=== PATIENT | male | born 1965 | race Caucasian/White ===

== ENCOUNTER 2018-11-24 09:58 | Emergency (ER) | payer OTHER ==
[2018-11-24] MEDS ORDERED: CHLORHEXIDINE GLUCONATE 4 % 15 ML UD TOP ONE (10:05)
[2018-11-24] MEDS ORDERED: TETANUS,DIPHTHERIA,PERTUSSIS 1 EA SYG IM ONE (10:23)
[2018-11-24] MEDS ORDERED: CEFUROXIME AXETIL TAB 250 MG TAB PO ONE (10:35)
--- NOTE | 2018-11-24 11:21 | RAD ---
EXAM DESCRIPTION: Tibia/Fibula,Left CLINICAL HISTORY: 53 years Male open wound, bone visible COMPARISON: None TECHNIQUE: AP, lateral and oblique views of the tibia/fibula are obtained. FINDINGS: OSSEOUS: There is no evidence of acute fracture or osteolytic/osteoblastic lesions. The joint spaces are preserved. There is no evidence of degenerative osteophytosis or sclerosis. There is no evidence of marginal erosive changes to suggest an inflammatory arthritis. SOFT TISSUE: There is no significant soft tissue swelling or mass. Focus of air density is superimposed on the junction of the middle and distal thirds of the tibia and may correlate with the reported open wound. There is no evidence of significant soft tissue calcifications. No radiopaque foreign bodies. No evidence of an ankle joint effusion. IMPRESSION: No acute osseous abnormalities. If there is clinical concern for osteomyelitis, recommend triple phase bone scan or MRI. Remainder of findings as described above. Electronically signed by: Mari Moon MD 11/24/2018 11:20 AM CDT
[2018-11-24] MEDS ORDERED: LIDOCAINE 1% W/ EPINEPHRINE 20 ML VIAL INJ ONE (11:26)
[2018-11-24] MEDS ORDERED: KETOROLAC TROMETHAMINE INJ 30 MG/ML VIAL IM ONE (11:27)
--- NOTE | 2018-11-24 11:30 | ED.PDOC ---
History of Present Illness - General Chief Complaint: Lower Extremity Injury Stated Complaint: left lower leg wound Time Seen by Provider: 11/24/18 10:22 Source: patient Exam Limitations: no limitations - History of Present Illness Initial Comments: Patient presents with a laceration to the left lower leg. He was working near his boat and struck his leg against a mechanical apparatus. He has mild pain in the anterior left lower leg. Refuses pain medications up arrival. No other injuries nor complaints. Timing/Duration: 1/2 hour Severity: mild Improving Factors: nothing Worsening Factors: nothing Associated Symptoms: denies symptoms Allergies/Adverse Reactions: Allergies NO KNOWN ALLERGY Allergy (Verified 11/24/18 11:08) Home Medications: Ambulatory Orders Cefuroxime Axetil 250 mg PO Q12H #13 tablet 11/24/18 Levothyroxine Sodium [Synthroid] 112 mcg PO DAILY 11/24/18 Pravastatin Sodium 40 mg PO DAILY 11/24/18 Review of Systems - Review of Systems Constitutional: States: no symptoms reported EENTM: States: no symptoms reported Respiratory: States: no symptoms reported Cardiology: States: no symptoms reported Gastrointestinal/Abdominal: States: no symptoms reported Genitourinary: States: no symptoms reported Musculoskeletal: States: no symptoms reported Skin: States: see HPI Neurological: States: no symptoms reported Endocrine: States: no symptoms reported Hematologic/Lymphatic: States: no symptoms reported Past Medical History (General) - Patient Medical History Hx Thyroid Disease: Yes Hx Cancer: Yes - skin Surgical History: other - Social History Hx Tobacco Use: Yes Family Medical History - Family History Mother Family History: Unknown Physical Exam - Physical Exam General Appearance: Alert Respiratory: lungs clear, normal breath sounds Cardiovascular/Chest: normal peripheral pulses, regular rate, rhythm Gastrointestinal/Abdominal: normal bowel sounds, non tender, soft Extremity: other - Quarter size circular laceration on anterior middle third of left lower leg. Tibia visible. Hemostatic. Neurologic: no motor/sensory deficits, alert, normal mood/affect, oriented x 3 Skin Exam: other - see extremity Lymphatic: no adenopathy Progress - Progress Progress: 11/24/18 12:23 Radiographs of the left tibia showed no fractures nor lesions. Patient given cefuroxime axetil 500 mg po x one in the E.D. because of the exposed bone. Area was prepped and draped in a sterile fashion. 6 cc lidocaine with epinephrine used to gain excellent local anethesia. Wound irrigated with 90 cc sterile NS. 7 interrupted sutures using 3-0 Proline were used to gain excellent wound edge approximation. Area was clean, dry, and hemostatic upon completion. Patient tolerated procedure well. RX for cefuroxime axetil 250 mg po bid x 7 days given due to higher risk of infection in this injury type. Departure - Departure Clinical Impression: Laceration Disposition: Discharge to Home or Self Care Condition: Good Departure Forms: ED Discharge - Pt. Copy, Patient Portal Self Enrollment Instructions: Laceration Infection (DC), Laceration Repair With Stitches (DC) Diet: resume usual diet Activity: increase activity as tolerated Referrals: UNKNOWN,PHYSICIAN [Primary Care Provider] - 1-2 Weeks Prescriptions: Cefuroxime Axetil 250 mg PO Q12H #13 tablet Home Medications: Ambulatory Orders Cefuroxime Axetil 250 mg PO Q12H #13 tablet 11/24/18 Levothyroxine Sodium [Synthroid] 112 mcg PO DAILY 11/24/18 Pravastatin Sodium 40 mg PO DAILY 11/24/18 Additional Instructions: Do not swim until the wound is healed. Keep the area clean. Take medication as prescribed. Return to the E.R. for increased pain, redness, swelling, loss of sensation in the left lower leg, or loss of muscle movement. Return to the E.R. for a temperature above 100.4.
[2018-11-24] MEDS ORDERED: NEOMYCIN-BACITRACIN-POLYMYXIN 0.9 GM UD TOP ONE (12:21)
[2018-11-24 12:44] VITALS: BP 126/84; TEMP 98.1; O2SAT 97
== END 2018-11-24 12:45 | disposition home or self-care (01) ==
LOC: ER 09:58
DX: S81.812A Laceration without foreign body, left lower leg, initial encounter (principal); E07.9 Disorder of thyroid, unspecified; Z85.828 Personal history of other malignant neoplasm of skin; Z87.891 Personal history of nicotine dependence; Z79.899 Other long term (current) drug therapy; W22.8XXA Striking against or struck by other objects, initial encounter; Y92.814 Boat as the place of occurrence of the external cause